=== PATIENT | female | born 1950 | race Caucasian/White ===

== ENCOUNTER 2023-08-29 19:23 | Emergency (ER) | payer MEDICARE, OTHER, SELFPAY ==
[2023-08-29 19:28] VITALS: BP 132/60
--- NOTE | 2023-08-29 20:24 | ED.GENMED ---
History of Present Illness
General
Chief Complaint: Fall
Source: patient
Exam Limitations: none
Time Seen by Provider: 08/29/23 19:38
Nursing documentation reviewed up to this point in time: agreed with
Travel History
Have you had any contact with someone who has COVID-19?: No
Do you have any symptoms of coronavirus? Fever > 100 degrees, chills, cough, shortness of breath, sore throat, loss of taste or smell, muscle aches, or headache?: No
History of Present Illness
History of Present Illness:
71-year-old female slip and fall on electrical cord just prior to arrival possibly struck her nose on the ground she has pain and bruising of her left knee has a mild headache she does have a history of A-fib on Xarelto has not taken her dose this
evening, no preceding chest pain or shortness of breath
Past History
Past History
ED Past Medical History: Arrthythmia, Asthma, GERD, HTN, Hypercholesterolemia and Other (Hiatel hernia)
ED Past Surgical History: Appendectomy and Cholecystectomy
Social History
Tobacco: Non-smoker
Alcohol: None
Personal:
Living: with family
Employment: Retired
Review of Systems
Review of Systems
All Other Systems: Not applicable
Constitutional: Denies fever or fatigue
EENT: Reports other (no neck pain)
Respiratory: Reports no symptoms
Cardiac: Denies chest pain or palpitations
Musculoskeletal: Denies neck pain
Neurological: Reports headache (mild)
Endocrine: Reports no symptoms
Phy Exam
Physical Exam
Physical Exam:
No neck pain
Physical Exam
General: no apparent distress, not acutely ill
Neck: No tongue bite no posterior neck pain no septal hematoma none tenderness over the nasal bone
Heart: s1/s2 regular rate and rhythm, no murmur. equal radial pulses.
Lungs: no acute respiratory distress.
Abdomen: not tender.
Neuro: alert and oriented. no focal neurological deficits
Skin: no rash
Psychiatric: well kept. interactive and cooperative
Extremities:Swelling with full range of motion of the left knee small moderate ecchymosis
Course
Orders/Labs/Results
Orders:
Orders
08/29/23 19:52
CT Head W/o Iv Contrast Urgent
Comment:
Reason For Exam: fall xarelto
Ice Pack-Treatment DIRECTED
Location: knee
Acetaminophen [Tylenol] 650 mg PO NOW STA
08/29/23 19:53
Saul Wrap Left-Treatment ONCE
Knee, Left 1 or 2 Views [CR Knee - Left 1 Or 2 Views] Urgent
Comment:
Reason For Exam: fall
Nasal Bones, complete 3 Views [CR Nasal Bones Comp Min 3 View] Urgent
Comment:
Reason For Exam: fall
Vital Signs
Initial and Last Documented VS:
Initial Vital Signs
Temp Pulse Resp BP Pulse Ox
98.3 F 77 20 132/60 99
08/29/23 19:28 08/29/23 19:28 08/29/23 19:28 08/29/23 19:28 08/29/23 19:28
Last Documented Vital Signs
Temp Pulse Resp BP Pulse Ox
98.3 F 77 20 132/60 99
08/29/23 19:28 08/29/23 19:28 08/29/23 19:28 08/29/23 19:28 08/29/23 19:28
MDM/Problems Addressed
Differential Diagnosis Includes:
Contusion, nasal fracture, intracerebral injury, knee injury,
MDM/Problems Addressed:
fall
Chronic conditions affecting care: Arrhythmia
Acute Exacerbation and/or Progression of Chronic Illness: Arrhythmia
*Radiology
Radiology exam reviewed: radiology read reviewed
*Pulse Oximetry
Patient hypoxic: no
*Critical Care Note
Total Time (30-74mins, 75-104mins- exclusive of procedures): Not Applicable
Update Note
Update Note:
Patient well-appearing [place] Coma Score 15 no obvious signs of head or neck trauma no neck pain, she is on a blood thinner CT of her head report noted plain films noted
ED Attending Note
-
Portions of this chart may have been created with voice recognition software.� Occasional wrong word or��sound alike� substitutions may have occurred due to the inherent limitations of voice recognition software.
Discharge Plan
Departure
Patient Disposition: Home (Routine Discharge)
Date of Disposition: 08/29/23
Time of Disposition: 20:28
Patient with high blood pressure during this ER visit?: No
Discharge Problem:
Injury of knee, left
Instructions: Contusion (DC), Preventing falls in adults, Head Injury in Adults (DC)
Prescriptions:
No Action
atorvastatin 20 MG tablet
20 mg PO DAILY
acetaminophen [Tylenol Extra Strength] 500 MG tablet
1,000 mg PO HS
esomeprazole magnesium [Nexium] 40 MG capsule,delayed release(DR/EC)
40 mg PO DAILY
lisinopril 10 MG tablet
10 mg PO DAILY
ibandronate [Boniva] 150 MG tablet
150 mg PO MONTHLY
Benefiber Sugar Free (dextrin) 350 GM powder
2 tsp PO DAILY
melatonin 5 MG tablet
5 mg PO HS
vitamin E (dl, acetate) 400 UNITS capsule
800 units PO DAILY
Slow Fe 142 MG tablet extended release
142 mg PO DAILY
omega 9-fer-qax-fish oil [Fish Oil] 1 EACH capsule
1 ea PO DAILY
multivitamin with folic acid [Tab-A-Pushpa] 1 TABLET tablet
1 tab PO DAILY
cholecalciferol (vitamin D3) [Vitamin D3] 50 mcg (2,000 unit) Tablet
50 mcg PO DAILY
Referrals:
Dustin White Jr., DO [Family Provider] - Next open appointment
Activity Restrictions/Additional Instructions:
no Xarelto this evening, restart tomorrow as scheduled, Tylenol as needed for pain, ice to areas that hurt return to the ER if headaches, neck pain, abdominal pain or any other concerns
Interventions
Interventions:
*Risk Screen - Suicide Last Done: 08/29/23 19:26
*General Assessment Last Done: 08/29/23 19:26
*Neglect/Abuse Screening Last Done: 08/29/23 19:26
Discharge Date and Time
Print Language: URDU
[2023-08-29] MEDS: TYLENOL 650 MG PO (20:29)
[2023-08-29 21:16] VITALS: BP 135/68
== END 2023-08-29 21:17 | disposition home or self-care (01) ==
LOC: EMR 19:23
PROVIDERS: EMERGENCY PHYSICIAN Emergency Medicine; FAMILY PHYSICIAN Family Medicine
DX: S89.92XA Unspecified injury of left lower leg, initial encounter (principal); J34.89 Other specified disorders of nose and nasal sinuses; W01.0XXA Fall on same level from slipping, tripping and stumbling without subsequent striking against object, initial encounter
CPT/HCPCS: 99284; 70160; 70450; 73560

== ENCOUNTER → 2023-08-31 13:37 | Outpatient (REF) | payer MEDICARE, OTHER, SELFPAY | LOC: HWRAD 13:37 | PROVIDERS: ATTENDING PHYSICIAN Internal Medicine Gastroenterology; FAMILY PHYSICIAN Family Medicine | DX: R79.89 Other specified abnormal findings of blood chemistry (principal) | CPT/HCPCS: 76700 ==

== ENCOUNTER → 2023-09-09 06:33 | Day surgery (SDC) | payer MEDICARE, OTHER, SELFPAY | LOC: GI 06:33 | PROVIDERS: ATTENDING PHYSICIAN Internal Medicine Gastroenterology | DX: Z12.11 Encounter for screening for malignant neoplasm of colon (principal); K57.30 Diverticulosis of large intestine without perforation or abscess without bleeding; K64.8 Other hemorrhoids; D12.4 Benign neoplasm of descending colon; K63.5 Polyp of colon; Z80.0 Family history of malignant neoplasm of digestive organs | CPT/HCPCS: 45380; 88305 ==

== ENCOUNTER → 2024-03-31 15:44 | Outpatient (REF) | payer MEDICARE, OTHER, SELFPAY | LOC: HWWDC 15:44 | PROVIDERS: ATTENDING PHYSICIAN Family Medicine | DX: Z12.31 Encounter for screening mammogram for malignant neoplasm of breast (principal) | CPT/HCPCS: 77063; 77067 ==

== ENCOUNTER 2025-05-04 09:02 | Emergency (ER) | payer MEDICARE, OTHER, SELFPAY ==
[2025-05-04 09:04] VITALS: BP 152/74
--- NOTE | 2025-05-04 09:49 | ED.MUSCINJ ---
HPI-Injury
General
Chief Complaint: Musculo-Skeletal Complaint
Source: patient
Exam Limitations: none
Time Seen by Provider: 05/04/25 09:33
History of Present Illness-Injury
Initial Injury comments:
74-year-old female presents complaining of left knee pain after tripping and falling yesterday. She fell directly onto her knee. She is on Xarelto but did not hit her head. She is has increased pain today. No other complaints at this time
Past History
Past History
ED Past Medical History: Arrthythmia, Asthma, GERD, HTN, Hypercholesterolemia and Other (Hiatel hernia)
ED Past Surgical History: Appendectomy and Cholecystectomy
Social History
Tobacco: Non-smoker
Alcohol: None
Personal:
Living: with family
Employment: Retired
Phy Exam
Physical Exam
Physical Exam:
General: Well-appearing female no acute respiratory distress
Musculoskeletal exam: Left knee with effusion tender anteriorly able to straight leg raise against gravity nontender over the posterior joint line
Skin is intact without abrasion
Injury Course
Orders/Labs/Results
Orders:
Orders
05/04/25 09:06
Knee, Left 4 or More Views [CR Knee - Left 4 Or More View*] Urgent
Comment:
Reason For Exam: fall
05/04/25 09:49
Knee Immobilizer Left-Treatmen ONCE
MDM/Problems Addressed
Differential Diagnosis Includes:
Patient with left knee pain after direct trauma to the knee yesterday. Consider contusion versus arthritis versus effusion versus fracture
X-rays of the knee were ordered through triage which I personally visualized demonstrate nondisplaced fracture of the patella.
Patient is functional with ability to straight leg raise. Will place in knee immobilizer. Will have her follow-up with orthopedics
*Pulse Oximetry
SaO2: 97
Oxygen Mode of Delivery: Room air
Patient hypoxic: no
*Critical Care Note
Total Time (30-74mins, 75-104mins- exclusive of procedures): Not Applicable
ED Attending Note
-
Portions of this chart may have been created with voice recognition software.� Occasional wrong word or��sound alike� substitutions may have occurred due to the inherent limitations of voice recognition software.
Discharge Plan
Departure
Patient Disposition: Home (Routine Discharge)
Date of Disposition: 05/04/25
Time of Disposition: 09:55
Patient with high blood pressure during this ER visit?: No
Discharge Problem:
Fracture, patella
Instructions: Knee Immobilizer (DC)
Prescriptions:
No Action
atorvastatin 20 MG tablet
20 mg PO DAILY
acetaminophen [Tylenol Extra Strength] 500 MG tablet
1,000 mg PO HS
esomeprazole magnesium [Nexium] 40 MG capsule,delayed release(DR/EC)
40 mg PO DAILY
lisinopril 10 MG tablet
10 mg PO DAILY
ibandronate [Boniva] 150 MG tablet
150 mg PO MONTHLY
Benefiber Sugar Free (dextrin) 350 GM powder
2 tsp PO DAILY
melatonin 5 MG tablet
5 mg PO HS
vitamin E (dl, acetate) 400 UNITS capsule
800 units PO DAILY
Slow Fe 142 MG tablet extended release
142 mg PO DAILY
omega 7-vpw-gma-fish oil [Fish Oil] 1 EACH capsule
1 ea PO DAILY
multivitamin with folic acid [Tab-A-Pushpa] 1 TABLET tablet
1 tab PO DAILY
cholecalciferol (vitamin D3) [Vitamin D3] 50 mcg (2,000 unit) Tablet
50 mcg PO DAILY
Referrals:
Karma Mckeon I. DO [[facility], Orthopedics]
Dustin White Jr., DO [Family Provider, Family Practice]
Activity Restrictions/Additional Instructions:
Use brace at all times. Avoid bending your knee. Follow-up with orthopedics. You may use Tylenol if needed for pain
Interventions
Interventions:
*Risk Screen - Suicide Last Done: 05/04/25 09:04
*General Assessment Last Done: 05/04/25 09:04
*Neglect/Abuse Screening Last Done: 05/04/25 09:06
Discharge Date and Time
Print Language: [place]
== END 2025-05-04 10:14 | disposition home or self-care (01) ==
LOC: EMR 09:02
PROVIDERS: EMERGENCY PHYSICIAN Emergency Medicine; FAMILY PHYSICIAN Family Medicine
DX: S82.002A Unspecified fracture of left patella, initial encounter for closed fracture (principal); W01.0XXA Fall on same level from slipping, tripping and stumbling without subsequent striking against object, initial encounter; E78.00 Pure hypercholesterolemia, unspecified; K21.9 Gastro-esophageal reflux disease without esophagitis; J45.909 Unspecified asthma, uncomplicated; I10 Essential (primary) hypertension; Z79.01 Long term (current) use of anticoagulants; Z90.49 Acquired absence of other specified parts of digestive tract
CPT/HCPCS: 99283; 29505; 73564

== ENCOUNTER → 2025-05-08 14:33 | Outpatient (REF) | payer MEDICARE, OTHER, SELFPAY | LOC: RAD 14:33 | PROVIDERS: ATTENDING PHYSICIAN Family Medicine | DX: J20.9 Acute bronchitis, unspecified (principal) | CPT/HCPCS: 71046 ==

== ENCOUNTER → 2025-05-21 07:12 | Outpatient (REF) | payer MEDICARE, OTHER, SELFPAY | LOC: HWWDC 07:12 | PROVIDERS: ATTENDING PHYSICIAN Obstetrics & Gynecology Gynecology; FAMILY PHYSICIAN Family Medicine | DX: M81.0 Age-related osteoporosis without current pathological fracture (principal); Z12.31 Encounter for screening mammogram for malignant neoplasm of breast | CPT/HCPCS: 77063; 77067; 77080 ==